=== PATIENT | male | born 1945 | race Caucasian/White ===

== ENCOUNTER 2017-10-12 04:17 | Inpatient (IN) | payer MEDICAID ==
--- NOTE | 2017-10-12 04:37 | C.PDOC ---
History Of Present Illness 72 year old male is brought to the ED for evaluation of seizure like activity that obscured [employer]. Patient got up to go to the bathroom and fell which occurred prior to arrival. On the floor patient started shaking arms and legs with no incontinence. Patient had a similar episode 3 weeks ago while in [place]. Patient was worked up there, had a negative CT scan. As per EMS en route to the ED patient became combative and agitated. While in the ED patient is cooperative. Patient denies fever, chills, nausea, vomit, bowel/urinary incontinence, weakness, numbness. Time Seen by Provider: 10/12/17 04:37 Chief Complaint (Nursing): Seizure History Per: Patient History/Exam Limitations: no limitations Recent Seizure Activity Began: Just Before Arrival Number Of Seizures: One Length Of Seizures (Duration): Unknown Quality Of Seizure: Generalized Precipitating Factor(s): None Post-ictal Period: Yes Severity: Moderate Pain Scale Rating Of: 4 Recent travel outside of the [place]: No Additional History Per: Patient Past Medical History Reviewed: Historical Data, Nursing Documentation, Vital Signs Vital Signs: Last Vital Signs Temp 98.5 F 10/12/17 04:30 Pulse 94 H 10/12/17 04:30 Resp 20 10/12/17 04:30 BP 145/78 10/12/17 04:30 Pulse Ox 96 10/12/17 05:09 - Medical History PMH: No Chronic Diseases Surgical History: No Surg Hx Family History: States: Unknown Family Hx - Social History Hx Tobacco Use: No Hx Alcohol Use: No Hx Substance Use: No Review Of Systems Constitutional: Negative for: Fever, Chills Eyes: Negative for: Vision Change Cardiovascular: Negative for: Chest Pain, Palpitations Respiratory: Negative for: Shortness of Breath Gastrointestinal: Negative for: Nausea, Vomiting, Abdominal Pain Musculoskeletal: Negative for: Back Pain Skin: Negative for: Rash Neurological: Negative for: Headache, Other Psych: Negative for: Anxiety Physical Exam - Physical Exam Appears: Non-toxic, No Acute Distress Skin: Warm, Dry Head: Normacephalic Eye(s): bilateral: Normal Inspection, PERRL, EOMI Oral Mucosa: Moist Neck: Supple Chest: Symmetrical Cardiovascular: Rhythm Regular Respiratory: No Rales, No Rhonchi, No Wheezing Gastrointestinal/Abdominal: Soft, No Tenderness, No Guarding, No Rebound Back: Normal Inspection Extremity: Normal ROM Extremity: Bilateral: Atraumatic, Normal Color And Temperature Neurological/Psych: Oriented x3, Normal Speech, Normal Cognition, Normal Motor, Normal Sensation, Other (no focal deficits) Gait: Unsteady ED Course And Treatment - Laboratory Results Result Diagrams: 10/12/17 05:16 10/12/17 05:16 ECG: Interpreted By Me, Viewed By Me ECG Rhythm: Sinus Rhythm, Nonspecific Changes O2 Sat by Pulse Oximetry: 96 (ON RA) Pulse Ox Interpretation: Normal - Radiology CXR: Interpreted by Me, Viewed By Me CXR Interpretation: No: Infiltrates, Fracture, Pnemothorax Progress Note: Plan: - CT head. - EKG. - LAbs. - CXR. - IV fluids. - UA Disposition Discussed With Dr.: Ace Wilcox Comment: accepted the patient on his service and took over the care at 6:10AM Counseled Patient/Family Regarding: Studies Performed, Diagnosis - Disposition Disposition: HOSPITALIZED Disposition Time: 04:37 Condition: FAIR Forms: [email or web address] (Eritrean) - POA Present On Arrival: Falls Or Trauma - Clinical Impression Clinical Impression: Seizure - Scribe Statement The provider has reviewed the documentation as recorded by the Scribe Raz Fuentes All medical record entries made by the Scribe were at my direction and personally dictated by me. I have reviewed the chart and agree that the record accurately reflects my personal performance of the history, physical exam, medical decision making, and the department course for this patient. I have also personally directed, reviewed, and agree with the discharge instructions and disposition. Decision To Admit - Pt Status Changed To: Hospital Disposition Of: Inpatient - Admit Certification Admit to Inpatient:: After my assessment, the patient will require hospitalization for at least two midnights. This is because of the severity of symptoms shown, intensity of services needed, and/or the medical risk in this patient being treated as an outpatient. - InPatient: Physician Admission Certification: I certify that this patient requires 2 or more midnights of care for the following reason:: After my assessment, the patient will require hospitalization for at least two midnights. This is because of the severity of symptoms shown, intensity of services needed, and/or the medical risk in this patient being treated as an outpatient. - . Bed Request Type: Regular Admitting Physician: Ace Wilcox Patient Diagnosis: Seizure
[2017-10-12] MEDS ORDERED: Sodium Chloride 0.9% 1,000 ML IV ONE (04:59)
[2017-10-12 05:25] LABS: BASO % 0.5 % (0.0-2.0); EOS # 0.1 K/uL (0.0-0.7); EOS % 1.2 % (0.0-4.0); HEMOGLOBIN 13.5 g/dL (12.0-18.0); LYMPH # 2.8 K/uL (1.0-4.3); LYMPH % 26.4 % (20.0-40.0); MEAN CELL VOLUME 69.3 fL (80.0-94.0); MEAN CORPUSCULAR HGB CONC 31.8 g/dL (33.0-37.0); MEAN PLATELET VOLUME 9.4 fL (7.2-11.7); MONO # 0.6 K/uL (0.0-0.8); MONO % 5.7 % (0.0-10.0); NEUT # 6.9 K/uL (1.8-7.0); NEUT % 66.2 % (50.0-75.0); NRBC % 0.3 % (0.0-2.0); RBC 6.11 Mil/uL (4.40-5.90); RED CELL DISTRIBUTION WIDTH 21.4 % (11.5-14.5); WHITE BLOOD COUNT 10.4 K/uL (4.8-10.8)
[2017-10-12 05:27] LABS: INR 1.1; PROTHROMBIN TIME 12.3 SECONDS (9.7-12.2)
[2017-10-12 05:44] LABS: ALB/GLOB RATIO 1.1 (1.0-2.1); ALBUMIN 3.8 g/dL (3.5-5.0); ALT/SGPT 6 U/L (21-72); AST/SGOT 25 U/L (17-59); BLOOD UREA NITROGEN 14 mg/dL (9-20); CALCIUM 9.2 mg/dl (8.6-10.4); GFR AFRICAN-AMERICAN > 60; GFR NON-AFRICAN AMERICAN 60
[2017-10-12 05:59] LABS: GRANULAR CAST 8 /lpf (0-1); SPERM URINE FEW /hpf; SQUAMOUS EPITHIAL < 1 /hpf (0-5); URINE BACTERIA FEW (<OCC); URINE BILIRUBIN NEGATIVE (NEGATIVE); URINE BLOOD 1+ (NEGATIVE); URINE CLARITY Clear (Clear); URINE COLOR Yellow (YELLOW); URINE GLUCOSE (UA) NORMAL (Normal); URINE LEUKOCYTE ESTERASE NEG Leu/uL (Negative); URINE PROTEIN 2+ mg/dL (NEGATIVE); URINE UROBILINOGEN NORMAL mg/dL (0.2-1.0)
--- NOTE | 2017-10-12 06:27 | CT ---
EXAM: CT Head Without Intravenous Contrast CLINICAL HISTORY: 72 years old, male; Pain; Headache; Additional info: Seizure, new onset TECHNIQUE: Axial computed tomography images of the head/brain without intravenous contrast. All CT scans at this facility use one or more dose reduction techniques, viz.: automated exposure control; ma/kV adjustment per patient size (including targeted exams where dose is matched to indication; i.e. head); or iterative reconstruction technique. COMPARISON: No relevant prior studies available. FINDINGS: Limitations: Motion artifact - mild. Brain: [id number] atrophy. No definite intracranial hemorrhage. No mass. No definite edema. Ventricles: No hydrocephalus. Bones/joints: No acute fracture. Soft tissues: Unremarkable. Sinuses: [id number] mucosal thickening of ethmoid sinuses. Scattered minimal mucosal thickening of remaining sinuses. Mastoid air cells: No mastoid effusion. Orbits: Unremarkable as visualized. IMPRESSION: 1. No definite acute intracranial abnormality. If symptoms persist, consider MRI for further evaluation. 2. Incidental/non-acute findings are described above.
--- NOTE | 2017-10-12 07:21 | CP.PCM.HP ---
<WillIndira MonsivaisLynette - Last Filed: 10/12/17 17:51> History of Present Illness - History of Present Illness History of Present Illness: CC: sudden onset shaking, fall [facility] #[id number] HPI: 72-year-old male with no reported past medical history presented to the ED for evaluation of a fall and sudden onset shaking/seizure-like activity as reported by family. Patient is Setswana-speaking, translation service was used, entry level administrative assistant id #[id number]. Patient's and son are at bedside. Per , patient was walking to the bathroom at about 4:00 AM, began to lose balance, and was caught by the and son because they observed this change. Patient last remembers feeling dizzy while walking. states patient was not talking and "in spasm" for about five minutes. Patient did not lose bowel or bladder continence during the episode. Presence of head trauma is unclear, family initially states that the patient hit his head but later stated patient did not hit his head. Presence of shaking is similarly unclear, initially reported but later denied. Family states that this is the second episode; first episode of similar events occurred about 1 month ago while patient was in [place]. Patient arrived in [facility] from [place] 1 week ago. Patient has no complaints at this time. Denies fever/chills, chest pain, shortness of breath, dizziness, urinary issues. PMD: in [place] Past medical history: patient denies Past surgical history: hernia repair in [place] (2013) Medications: per patient and family "uses inhaler one time every night to help with breathing," denies other medications Allergies: NKDA Family history: denies family history of cancer or heart disease Social history: current smoker, 1ppd for 40 years; denies alcohol or illicit drug use Present on Admission - Present on Admission Any Indicators Present on Admission: No Review of Systems - Constitutional Constitutional: absent: Chills, Fever, Headache - EENT Eyes: absent: Blurred Vision Ears: Dizziness - Cardiovascular Cardiovascular: Syncope. absent: Chest Pain, Dyspnea, Palpitations - Respiratory Respiratory: absent: Cough, Dyspnea - Gastrointestinal Gastrointestinal: absent: Constipation, Diarrhea, Nausea, Vomiting - Genitourinary Genitourinary: absent: Dysuria - Neurological Neurological: Confusion, Convulsions, Dizziness, Syncope Past Patient History - Infectious Disease Hx of Infectious Diseases: None - Past Social History Smoking Status: Never Smoked - CARDIAC Hx Hypertension: Yes - PULMONARY Hx Respiratory Disorders: No - NEUROLOGICAL Hx Neurological Disorder: Yes Other/Comment: hx seixzure-like activity - HEENT Hx HEENT Problems: No - RENAL Hx Chronic Kidney Disease: No - ENDOCRINE/METABOLIC Hx Endocrine Disorders: No - HEMATOLOGICAL/ONCOLOGICAL Hx Blood Disorders: No - INTEGUMENTARY Hx Dermatological Problems: No - MUSCULOSKELETAL/RHEUMATOLOGICAL Hx Musculoskeletal Disorders: No - GASTROINTESTINAL Hx Gastrointestinal Disorders: No - GENITOURINARY/GYNECOLOGICAL Hx Genitourinary Disorders: No - PSYCHIATRIC Hx Substance Use: No - SURGICAL HISTORY Hx Surgeries: Yes Other/Comment: umbilical hernia - ANESTHESIA Hx Anesthesia: Yes Hx Anesthesia Reactions: No Meds Home Medications: Home Medication List Medication Instructions Recorded Confirmed Type Levetiracetam [Keppra] 500 mg PO BID #60 tablet 10/12/17 Rx RX: Carvedilol [Coreg] 3.125 mg PO BID #60 tab 10/12/17 Rx RX: Rosuvastatin Calcium [Crestor] 5 mg PO HS #30 tab 10/12/17 Rx Allergies/Adverse Reactions: Allergies Allergy/AdvReac Type Severity Reaction Status Date / Time No Known Allergies Allergy Unverified 10/12/17 04:43 Physical Exam - Constitutional Appears: Non-toxic, No Acute Distress - Head Exam Head Exam: ATRAUMATIC, NORMAL INSPECTION - Eye Exam Eye Exam: EOMI, Normal appearance, PERRL. absent: Scleral icterus Pupil Exam: NORMAL ACCOMODATION - ENT Exam ENT Exam: Mucous Membranes Moist - Respiratory Exam Respiratory Exam: Clear to Auscultation Bilateral, NORMAL BREATHING PATTERN - Cardiovascular Exam Cardiovascular Exam: REGULAR RHYTHM, +S1, +S2 - GI/Abdominal Exam GI & Abdominal Exam: Normal Bowel Sounds, Soft. absent: Tenderness - Extremities Exam Extremities exam: Positive for: normal capillary refill, normal inspection, pedal pulses present. Negative for: pedal edema, tenderness - Neurological Exam Neurological exam: Alert, CN II-XII Intact, Oriented x3 - Expanded Neurological Exam Expanded Patient oriented to: person, place, time Cerebellar Function: Romberg: Normal Upper motor neuron: Pronator Drift: Normal Sensory exam: Lower Extremity Light Touch: Normal, Upper Extremity Light Touch: Normal Neuro motor strength exam: Left Upper Extremity: 5, Right Upper Extremity: 5, Left Lower Extremity: 5, Right Lower Extremity: 5 Coma Scale Eye Opening: SPONTANEOUS Coma Scale Motor Response: OBEYS COMMANDS Coma Scale Verbal: Oriented Coma Scale Total: 15 - Psychiatric Exam Psychiatric exam: Flat Affect, Normal Mood - Skin Skin Exam: Normal Color Results - Vital Signs Recent Vital Signs: Last Vital Signs Temp 97.9 F 10/12/17 07:10 Pulse 75 10/12/17 07:10 Resp 20 10/12/17 07:10 BP 155/79 H 10/12/17 07:10 Pulse Ox 97 10/12/17 07:10 - Labs Result Diagrams: 10/12/17 05:16 10/12/17 05:16 Labs: Laboratory Results - last 24 hr 10/12/17 10/12/17 10/12/17 04:19 05:16 05:16 WBC 10.4 RBC 6.11 H Hgb 13.5 Hct 42.3 MCV 69.3 L MCH 22.0 L MCHC 31.8 L RDW 21.4 H Plt Count 276 MPV 9.4 Neut % (Auto) 66.2 Lymph % (Auto) 26.4 [place]in[place] % (Auto) 5.7 Eos % (Auto) 1.2 Baso % (Auto) 0.5 Neut # (Auto) 6.9 Lymph # (Auto) 2.8 [place]in[place] # (Auto) 0.6 Eos # (Auto) 0.1 Baso # (Auto) 0.0 PT 12.3 H INR 1.1 APTT 29 Sodium Potassium Chloride Carbon Dioxide Anion Gap BUN Creatinine Est GFR ( Amer) Est GFR (Non-Af Amer) POC Glucose (mg/dL) 166 H Random Glucose Calcium Magnesium Total Bilirubin AST ALT Alkaline Phosphatase Total Protein Albumin Globulin Albumin/Globulin Ratio Urine Color Urine Clarity Urine pH Ur Specific [place] Urine Protein Urine Glucose (UA) Urine Ketones Urine Blood Urine Nitrate Urine Bilirubin Urine Urobilinogen Ur Leukocyte Esterase Urine WBC (Auto) Urine RBC (Auto) Ur Squamous Epith Cells Urine Bacteria Granular Casts (Auto) Urine Sperm (Auto) 10/12/17 10/12/17 05:16 05:42 WBC RBC Hgb Hct MCV MCH MCHC RDW Plt Count MPV Neut % (Auto) Lymph % (Auto) [place] % (Auto) Eos % (Auto) Baso % (Auto) Neut # (Auto) Lymph # (Auto) [place] # (Auto) Eos # (Auto) Baso # (Auto) PT INR APTT Sodium 145 Potassium 4.0 Chloride 104 Carbon Dioxide 20 L Anion Gap 25 H BUN 14 Creatinine 1.2 Est GFR ( Amer) > 60 Est GFR (Non-Af Amer) 60 POC Glucose (mg/dL) Random Glucose 141 H Calcium 9.2 Magnesium 2.2 Total Bilirubin 0.8 AST 25 ALT 6 L Alkaline Phosphatase 138 H Total Protein 7.4 Albumin 3.8 Globulin 3.5 Albumin/Globulin Ratio 1.1 Urine Color Yellow Urine Clarity Clear Urine pH 5.0 Ur Specific [place] 1.018 Urine Protein 2+ H Urine Glucose (UA) Normal Urine Ketones Negative Urine Blood 1+ H Urine Nitrate Negative Urine Bilirubin Negative Urine Urobilinogen Normal Ur Leukocyte Esterase Neg Urine WBC (Auto) 8 H Urine RBC (Auto) 8 H Ur Squamous Epith Cells < 1 Urine Bacteria Few H Granular Casts (Auto) 8 Urine Sperm (Auto) Few H Assessment & Plan - Assessment and Plan (Free Text) Assessment: Syncope/Seizure - Admitted to Tele - Neuro checks q6h - Neuro Consult: Dr. Nguyen --> help appreciated - Cardio Consult: Dr. Gutierrez --> help appreciated - Orthostatic vitals - ProBNP 192 - Medications: * Keppra 500mg q12h - Images * Head CT:No definite acute intracranial abnormality. If symptoms persist, consider MRI for further evaluation. * Brain MRI w and w/o contrast: Age-related age-appropriate neuro degenerative changes are identified without definite acute intracranial findings. No abnormal intracranial enhancement. Incidental limited left mastoid effusions. * f/u EEG * f/u ECHO Elevated D-dimer - D-dimer 272 - f/u CT angio - LE doppler: negative Elevated Blood Pressure - f/u ECHO - TSH 1.25 - Coreg 3.125mg bid COPD - due to 20+ years of smoking - Chest Xray: No acute cardiopulmonary disease appreciated. - Medications * Advair * Duonebs prn Microhematuria - UA: RBC+ - Ceftriaxone 1gm q12h - f/u urine culture - f/u renal/urinary bladder US Impaired Glucose Tolerance - hA1c: 5.7 - Heart Healthy/Low carb diet Elevated Triglycerides - Lipid Panel: Triglycerides 183; Total Cholesterol 190; LDL 115; HDL 29 - Crestor 5mg HS Tobacco Use Disorder - Discussed the importance of smoking cessation - Nicotine Patch 21per day Prophylaxis - SCDs - Heparin SC q8h - Protonix 40mg po daily - Heart Healthy/Low Carb - PT eval and treat Case Discussed with Dr. Rose Solis PGY-1 <Vilma Rose V - Last Filed: 10/13/17 00:13> Results - Vital Signs Recent Vital Signs: Last Vital Signs Temp 98.2 F 10/12/17 13:24 Pulse 64 10/12/17 13:24 Resp 18 10/12/17 13:24 BP 138/80 10/12/17 13:24 Pulse Ox 96 10/12/17 13:24 - Labs Result Diagrams: 10/12/17 05:16 10/12/17 05:16 Labs: Laboratory Results - last 24 hr 10/12/17 10/12/17 10/12/17 04:19 05:16 05:16 WBC 10.4 RBC 6.11 H Hgb 13.5 Hct 42.3 MCV 69.3 L MCH 22.0 L MCHC 31.8 L RDW 21.4 H Plt Count 276 MPV 9.4 Neut % (Auto) 66.2 Lymph % (Auto) 26.4 [place] % (Auto) 5.7 Eos % (Auto) 1.2 Baso % (Auto) 0.5 Neut # (Auto) 6.9 Lymph # (Auto) 2.8 [place] # (Auto) 0.6 Eos # (Auto) 0.1 Baso # (Auto) 0.0 Differential Comment PT 12.3 H INR 1.1 APTT 29 D-Dimer, Quantitative Sodium Potassium Chloride Carbon Dioxide Anion Gap BUN Creatinine Est GFR ( Amer) Est GFR (Non-Af Amer) POC Glucose (mg/dL) 166 H Random Glucose Hemoglobin A1c Calcium Magnesium Total Bilirubin AST ALT Alkaline Phosphatase Total Creatine Kinase CK-MB (Mass) Troponin I NT-Pro-B Natriuret Pep Total Protein Albumin Globulin Albumin/Globulin Ratio Triglycerides Cholesterol LDL Cholesterol Direct HDL Cholesterol TSH 3rd Generation Urine Color Urine Clarity Urine pH Ur Specific [place] Urine Protein Urine Glucose (UA) Urine Ketones Urine Blood Urine Nitrate Urine Bilirubin Urine Urobilinogen Ur Leukocyte Esterase Urine WBC (Auto) Urine RBC (Auto) Ur Squamous Epith Cells Urine Bacteria Granular Casts (Auto) Urine Sperm (Auto) Urine Opiates Screen Urine Methadone Screen Ur Barbiturates Screen Ur Phencyclidine Scrn Ur Amphetamines Screen U Benzodiazepines Scrn U Oth Cocaine Metabols U Cannabinoids Screen Alcohol, Quantitative 10/12/17 10/12/17 10/12/17 05:16 05:42 07:54 WBC RBC Hgb Hct MCV MCH MCHC RDW Plt Count MPV Neut % (Auto) Lymph % (Auto) [place] % (Auto) Eos % (Auto) Baso % (Auto) Neut # (Auto) Lymph # (Auto) [place] # (Auto) Eos # (Auto) Baso # (Auto) Differential Comment PT INR APTT D-Dimer, Quantitative Sodium 145 Potassium 4.0 Chloride 104 Carbon Dioxide 20 L Anion Gap 25 H BUN 14 Creatinine 1.2 Est GFR ( Amer) > 60 Est GFR (Non-Af Amer) 60 POC Glucose (mg/dL) 116 H Random Glucose 141 H Hemoglobin A1c Calcium 9.2 Magnesium 2.2 Total Bilirubin 0.8 AST 25 ALT 6 L Alkaline Phosphatase 138 H Total Creatine Kinase CK-MB (Mass) Troponin I NT-Pro-B Natriuret Pep Total Protein 7.4 Albumin 3.8 Globulin 3.5 Albumin/Globulin Ratio 1.1 Triglycerides Cholesterol LDL Cholesterol Direct HDL Cholesterol TSH 3rd Generation 1.25 Urine Color Yellow Urine Clarity Clear Urine pH 5.0 Ur Specific [place] 1.018 Urine Protein 2+ H Urine Glucose (UA) Normal Urine Ketones Negative Urine Blood 1+ H Urine Nitrate Negative Urine Bilirubin Negative Urine Urobilinogen Normal Ur Leukocyte Esterase Neg Urine WBC (Auto) 8 H Urine RBC (Auto) 8 H Ur Squamous Epith Cells < 1 Urine Bacteria Few H Granular Casts (Auto) 8 Urine Sperm (Auto) Few H Urine Opiates Screen Urine Methadone Screen Ur Barbiturates Screen Ur Phencyclidine Scrn Ur Amphetamines Screen U Benzodiazepines Scrn U Oth Cocaine Metabols U Cannabinoids Screen Alcohol, Quantitative < 10 10/12/17 10/12/17 10/12/17 08:11 08:35 10:47 WBC RBC Hgb Hct MCV MCH MCHC RDW Plt Count MPV Neut % (Auto) Lymph % (Auto) [place] % (Auto) Eos % (Auto) Baso % (Auto) Neut # (Auto) Lymph # (Auto) [place] # (Auto) Eos # (Auto) Baso # (Auto) Differential Comment PT INR APTT D-Dimer, Quantitative Sodium Potassium Chloride Carbon Dioxide Anion Gap BUN Creatinine Est GFR ( Amer) Est GFR (Non-Af Amer) POC Glucose (mg/dL) Random Glucose Hemoglobin A1c 5.7 Calcium Magnesium Total Bilirubin AST ALT Alkaline Phosphatase Total Creatine Kinase 154 CK-MB (Mass) 1.91 Troponin I < 0.0120 NT-Pro-B Natriuret Pep 192 Total Protein Albumin Globulin Albumin/Globulin Ratio Triglycerides 183 H Cholesterol 190 LDL Cholesterol Direct 115 HDL Cholesterol 29 L TSH 3rd Generation 0.62 Urine Color Urine Clarity Urine pH Ur Specific [place] Urine Protein Urine Glucose (UA) Urine Ketones Urine Blood Urine Nitrate Urine Bilirubin Urine Urobilinogen Ur Leukocyte Esterase Urine WBC (Auto) Urine RBC (Auto) Ur Squamous Epith Cells Urine Bacteria Granular Casts (Auto) Urine Sperm (Auto) Urine Opiates Screen Negative Urine Methadone Screen Negative Ur Barbiturates Screen Negative Ur Phencyclidine Scrn Negative Ur Amphetamines Screen Negative U Benzodiazepines Scrn Negative U Oth Cocaine Metabols Negative U Cannabinoids Screen Negative Alcohol, Quantitative < 10 10/12/17 10:47 WBC RBC Hgb Hct MCV MCH MCHC RDW Plt Count MPV Neut % (Auto) Lymph % (Auto) [place] % (Auto) Eos % (Auto) Baso % (Auto) Neut # (Auto) Lymph # (Auto) [place] # (Auto) Eos # (Auto) Baso # (Auto) Differential Comment PT INR APTT D-Dimer, Quantitative 272 H Sodium Potassium Chloride Carbon Dioxide Anion Gap BUN Creatinine Est GFR ( Amer) Est GFR (Non-Af Amer) POC Glucose (mg/dL) Random Glucose Hemoglobin A1c Calcium Magnesium Total Bilirubin AST ALT Alkaline Phosphatase Total Creatine Kinase CK-MB (Mass) Troponin I NT-Pro-B Natriuret Pep Total Protein Albumin Globulin Albumin/Globulin Ratio Triglycerides Cholesterol LDL Cholesterol Direct HDL Cholesterol TSH 3rd Generation Urine Color Urine Clarity Urine pH Ur Specific [place] Urine Protein Urine Glucose (UA) Urine Ketones Urine Blood Urine Nitrate Urine Bilirubin Urine Urobilinogen Ur Leukocyte Esterase Urine WBC (Auto) Urine RBC (Auto) Ur Squamous Epith Cells Urine Bacteria Granular Casts (Auto) Urine Sperm (Auto) Urine Opiates Screen Urine Methadone Screen Ur Barbiturates Screen Ur Phencyclidine Scrn Ur Amphetamines Screen U Benzodiazepines Scrn U Oth Cocaine Metabols U Cannabinoids Screen Alcohol, Quantitative Assessment & Plan (1) New onset seizure Status: Acute Comment: Patient admitted to regular floor. Transferred to telemetry in light of new onset seizure. Neurology (Dr. Nguyen) on case-->help appreciated. In light of second seizure, patient starting on Keppra 1gm IV X1, Keppra 500mg IV Q12H. CT head (10/12/17): no definite acute intracranial abnormality. Brain MRI w and w/o (10/12/17): age-related age-appropriate neuro degenerative changes are identified without definite acute intracranial findings. No abnormal intracranial enhancement. Incidental limited left mastoid effusions. EEG pending. Hba1c: 5.7. NATALIE and EKG, Q6H; troponin negative. probnp: 192. Echocardiogram completed. UDS: negative (2) Smoking Status: Chronic Comment: Nicotine patch provided. Duonebs PRN shortness of breathe (3) Hematuria Status: Acute Comment: UA: +pyuria, +hematuria, bacteria. Start Rocephin 1 gram Iv q daily ( to cover for urinary tract infection). Renal and Bladder US ordered r/o mass, in light of painless hematuria and smoking history (4) Pyuria Status: Acute Comment: Start Rocephin 1 gram Iv q daily (to cover for urinary tract infection) . Renal and Bladder US ordered r/o mass, in light of painless hematuria and smoking history (5) Impaired glucose tolerance Status: Acute Comment: a1c: 5.7. Will need lifestyle modifications to reduce risk of becoming overt diabetes (6) High triglycerides Status: Chronic Comment: T (high), cholestrol: 190, LDL: 115, HDL: 29 (low) (7) Elevated d-dimer Status: Acute Comment: venous dopplers r/o DVT. CT angio r/o PE (8) Prophylactic measure Status: Acute Comment: Heparin 5000 units subq 8H Attending/Attestation - Attestation I have personally seen and examined this patient.: Yes I have fully participated in the care of the patient.: Yes I have reviewed all pertinent clinical information: Yes Notes (Text): Patient seen, examined, and case discussed with day-time resident. Patient seen at bedside with his family at bedside. Patient is Samoan, [employer]; son is assisting in translation. We have also used the translation, Setswana, Female intrepetator: Juan Antonio to assist us. Description from patient's , patient was going to the bathroom and while coming back she had noted that he was shaking and that he fell and that she try to prevent his fall. notes that his hands were crossed and fixed stiff but when he fell his limbs were relaxed. Son reports he heard the noise continuous in the same room as his parents and try to prevent his job from falling. Both son and report that patient was not himself until after the ambulance came meaning that he was not awake or alert. They supposedly lasted for 10 minutes. They speak with the patient at bedside he reports prior to the episode that he felt some dizziness and some nausea but did not vomit. He reports he did not sleep well. He reports normally he goes to the bathroom about 3 times at night. Patient reports that about month ago he had a similar episode and it went the hospital and they had done some imaging and reports that he had a seizure. Patient reports he hurt his back and takes Tylenol on occasion to relieve back pain. Patient is a known smoker about 40 years. Patient is not aware of any medical problems that he may have nor has seen a primary medical doctor for routine health visit. Patient was initially admitted to regular floor we have put in the transfer order for telemetry since this is a new onset seizure. I reviewed the CT head which shows no acute findings. We'll consult neurology. Resident has spoken with neurologist further workup is advised including but not limited to brain with MRI with and without contrast, EEG, and will receive loading dose of Keppra and maintenance dose of Keppra since this is the second episode of seizure. We will also order for Nestor an EKG 6 hours apart at least 3 as well as d-dimer to rule out PE given this recurrent fall. Patient's UA is abnormal for pyuria and hematuria. In light of his smoking history we will rule out renal mass with renal ultrasound and bladder. We will start Rocephin for empiric antibiotic therapy to cover for urinary tract infection. We will order physical therapy and occupational therapy.
[2017-10-12] MEDS ORDERED: Albuterol-Ipratrop 3 mg / 0.5 (3 ml) UD INH PRN (08:21)
[2017-10-12 09:13] LABS: BARBITURATES, UR NEGATIVE (NEGATIVE); BENZODIAZEPINES, UR NEGATIVE (NEGATIVE); OPIATES, UR NEGATIVE (NEGATIVE); PHENCYCLIDINE, UR NEGATIVE (NEGATIVE)
--- NOTE | 2017-10-12 09:59 | RAD ---
PROCEDURE: CHEST RADIOGRAPH, 1 VIEW HISTORY: SOB COMPARISON: None available. FINDINGS: LUNGS: No acute pulmonary disease appreciated. Patient rotated toward the right limiting evaluation the right hilar region somewhat. PLEURA: No pneumothorax or pleural fluid seen. CARDIOVASCULAR: Normal. OSSEOUS STRUCTURES: No significant abnormalities. VISUALIZED UPPER ABDOMEN: Normal. OTHER FINDINGS: None. IMPRESSION: No acute cardiopulmonary disease appreciated.
[2017-10-12] MEDS: levETIRAcetam 500 MG in Sodium Chloride 0.9% 100 ML IVPB SCH ×2 (10:03→22:02)
[2017-10-12 11:06] LABS: HDL CHOLESTEROL 29 mg/dL (30-70)
[2017-10-12] MEDS ORDERED: Gadodiamide 287 mg/ml 20 ml IV ONE (11:13)
[2017-10-12 11:17] LABS: LDL CHOLESTEROL 115 mg/dL (0-129)
[2017-10-12 11:21] LABS: B-TYPE NATRIURETIC PEPTIDE 192 pg/mL (0-900); CK-MB 1.91 ng/mL (0.0-3.38)
--- NOTE | 2017-10-12 13:05 | MRI ---
PROCEDURE: MRI BRAIN WITH AND WITHOUT CONTRAST HISTORY: new onset seizure COMPARISON: Noncontrast head CT 10/12/2017. TECHNIQUE: Multiplanar, multisequence MR images of the brain were obtained with and without intravenous contrast enhancement. FINDINGS: HEMORRHAGE: None DWI: No evidence of an acute or early subacute infarction. BRAIN PARENCHYMA: Limited diffuse cerebral atrophy and chronic microangiopathy are identified. There is no mass effect or cortical edema identified. There is no suspicious signal change identified in posterior fossa including the brainstem. High-resolution imaging through the bilateral temporal as well as demonstrate evidence of support mesial temporal sclerosis bilaterally. No intracranial enhancing mass or other suspicious contrast enhancement pattern throughout the brain. ENHANCEMENT: No abnormal intracranial enhancement. VENTRICLES: Unremarkable. No hydrocephalus. CRANIUM: Unremarkable. ORBITS: Grossly unremarkable. PARANASAL SINUSES/MASTOIDS: Mild left mastoid effusions are identified. VASCULAR SYSTEM: Skull base flow voids intact. OTHER FINDINGS: None . IMPRESSION: Age-related age-appropriate neuro degenerative changes are identified without definite acute intracranial findings. No abnormal intracranial enhancement. Incidental limited left mastoid effusions.
[2017-10-12 13:25] VITALS: O2SAT 96
[2017-10-12 15:37] LABS: CK-MB 1.91 ng/mL (0.0-3.38)
[2017-10-12 16:16] VITALS: RESP 20; TEMP 98.5
--- NOTE | 2017-10-12 16:56 | CP.PCM.CON ---
History of Present Illness - History of Present Illness History of Present Illness: Mr. Moreno is a 72 year-old [place] male with PMHx of HTN, asthma who came to the ED after a fall in his home at 4 am. He states that he was feeling dizzy at 10 pm, but felt better so went back to bed. As per family, fall occured at 4 am when patient went to the bathroom, but his son and caught him from falling , and denies any trauma or LOC. Of note, the patient had a similar fall 3 weeks ago while in [place], and at that time, he hurt his back and has been on Voltaren since then. There was some misunderstanding between family and medical team while using translation service, as patient expressed that he grasped his arms to protect his fall but was understood to have had seizure-like activities. Patiently was living in [place] and only recently travelled. Patient denies shortness of breath, chest pain, lightheadedness, palpitations, or leg swelling or pain. Cardiology was consulted for possible cardiac related syncope. PMH: as above PSH: non-contributory Meds: inhaler nightly for asthma, analgesics for back pain SHx: 1ppd for 40+yrs, denies ETOH or drug use ALL: NKDA Review of Systems - Review of Systems All systems: reviewed and no additional remarkable complaints except (as per HPI ) Past Patient History - Infectious Disease Hx of Infectious Diseases: None - Past Medical History & Family History Past Medical History?: Yes - Past Social History Smoking Status: Heavy Smoker > 10 Cigarettes Daily Alcohol: None Drugs: Denies Home Situation {Lives}: With Family - CARDIAC Hx Hypertension: Yes - PULMONARY Hx Asthma: Yes - NEUROLOGICAL Hx Neurological Disorder: Yes - HEENT Hx HEENT Problems: No - RENAL Hx Chronic Kidney Disease: No - ENDOCRINE/METABOLIC Hx Endocrine Disorders: No - HEMATOLOGICAL/ONCOLOGICAL Hx Blood Disorders: No - INTEGUMENTARY Hx Dermatological Problems: No - MUSCULOSKELETAL/RHEUMATOLOGICAL Hx Musculoskeletal Disorders: No - GASTROINTESTINAL Hx Gastrointestinal Disorders: No - GENITOURINARY/GYNECOLOGICAL Hx Genitourinary Disorders: No - PSYCHIATRIC Hx Psychophysiologic Disorder: No Hx Substance Use: No - SURGICAL HISTORY Hx Surgeries: Yes Other/Comment: umbilical hernia - ANESTHESIA Hx Anesthesia: Yes Hx Anesthesia Reactions: No Meds Home Medications: Home Medication List Medication Instructions Recorded Confirmed Type Carvedilol [Coreg] 3.125 mg PO BID #60 tab 10/12/17 Rx Levetiracetam [Keppra] 500 mg PO BID #60 tablet 10/12/17 Rx Rosuvastatin Calcium [Crestor] 5 mg PO HS #30 tab 10/12/17 Rx Allergies/Adverse Reactions: Allergies Allergy/AdvReac Type Severity Reaction Status Date / Time No Known Allergies Allergy Unverified 10/12/17 04:43 - Medications Medications: Current Medications Albuterol/Ipratropium (Duoneb 3 Mg/0.5 Mg (3 Ml) Ud) 3 ml INH RQ6 PRN PRN Reason: Shortness of Breath Aspirin (Aspirin Chewable) 81 mg PO DAILY [facility] Last Admin: 10/12/17 09:40 Dose: 81 mg Heparin Sodium (Porcine) (Heparin) 5,000 units SC Q8 [facility] Last Admin: 10/12/17 14:14 Dose: 5,000 units Levetiracetam 500 mg/ Sodium (Chloride) 105 mls @ 420 mls/hr IVPB Q12H [facility] Last Admin: 10/12/17 10:03 Dose: 420 mls/hr Ceftriaxone Sodium 1 gm/ (Sodium Chloride) 100 mls @ 100 mls/hr IVPB DAILY [facility] PRN Reason: Protocol Nicotine (Nicoderm Cq) 1 patch TD DAILY [facility] Last Admin: 10/12/17 10:21 Dose: 1 patch Pneumococcal Polyvalent Vaccine (Pneumovax 23 Vaccine) 0.5 ml IM .ONCE ONE Stop: 10/14/17 10:01 Rosuvastatin Calcium (Crestor) 5 mg PO [facility] Physical Exam - Constitutional Appears: Well, Non-toxic, No Acute Distress - Head Exam Head Exam: NORMAL INSPECTION - Eye Exam Eye Exam: EOMI, Normal appearance, PERRL - ENT Exam ENT Exam: Mucous Membranes Moist - Neck Exam Neck exam: Positive for: Normal Inspection - Respiratory Exam Respiratory Exam: Wheezes, NORMAL BREATHING PATTERN. absent: Rales, Rhonchi - Cardiovascular Exam Cardiovascular Exam: RRR, +S1, +S2. absent: Systolic Murmur - GI/Abdominal Exam GI & Abdominal Exam: Normal Bowel Sounds, Soft. absent: Distended, Tenderness - Extremities Exam Extremities exam: Positive for: normal inspection. Negative for: pedal edema - Neurological Exam Neurological exam: Alert, Normal Gait, Oriented x3 - Psychiatric Exam Psychiatric exam: Normal Mood - Skin Skin Exam: Normal Color, Warm Results - Vital Signs Recent Vital Signs: Last Vital Signs Temp 98.5 F 10/12/17 16:15 Pulse 71 10/12/17 16:15 Resp 20 10/12/17 16:15 BP 160/78 H 10/12/17 16:15 Pulse Ox 96 10/12/17 16:15 - Labs Result Diagrams: 10/12/17 05:16 10/12/17 05:16 Labs: Laboratory Results - last 24 hr 10/12/17 10/12/17 10/12/17 04:19 05:16 05:16 WBC 10.4 RBC 6.11 H Hgb 13.5 Hct 42.3 MCV 69.3 L MCH 22.0 L MCHC 31.8 L RDW 21.4 H Plt Count 276 MPV 9.4 Neut % (Auto) 66.2 Lymph % (Auto) 26.4 [place] % (Auto) 5.7 Eos % (Auto) 1.2 Baso % (Auto) 0.5 Neut # (Auto) 6.9 Lymph # (Auto) 2.8 [place] # (Auto) 0.6 Eos # (Auto) 0.1 Baso # (Auto) 0.0 Differential Comment PT 12.3 H INR 1.1 APTT 29 D-Dimer, Quantitative Sodium Potassium Chloride Carbon Dioxide Anion Gap BUN Creatinine Est GFR ( Amer) Est GFR (Non-Af Amer) POC Glucose (mg/dL) 166 H Random Glucose Hemoglobin A1c Calcium Magnesium Total Bilirubin AST ALT Alkaline Phosphatase Total Creatine Kinase CK-MB (Mass) Troponin I NT-Pro-B Natriuret Pep Total Protein Albumin Globulin Albumin/Globulin Ratio Triglycerides Cholesterol LDL Cholesterol Direct HDL Cholesterol TSH 3rd Generation Urine Color Urine Clarity Urine pH Ur Specific [place] Urine Protein Urine Glucose (UA) Urine Ketones Urine Blood Urine Nitrate Urine Bilirubin Urine Urobilinogen Ur Leukocyte Esterase Urine WBC (Auto) Urine RBC (Auto) Ur Squamous Epith Cells Urine Bacteria Granular Casts (Auto) Urine Sperm (Auto) Urine Opiates Screen Urine Methadone Screen Ur Barbiturates Screen Ur Phencyclidine Scrn Ur Amphetamines Screen U Benzodiazepines Scrn U Oth Cocaine Metabols U Cannabinoids Screen Alcohol, Quantitative 10/12/17 10/12/17 10/12/17 05:16 05:42 07:54 WBC RBC Hgb Hct MCV MCH MCHC RDW Plt Count MPV Neut % (Auto) Lymph % (Auto) [place] % (Auto) Eos % (Auto) Baso % (Auto) Neut # (Auto) Lymph # (Auto) [place] # (Auto) Eos # (Auto) Baso # (Auto) Differential Comment PT INR APTT D-Dimer, Quantitative Sodium 145 Potassium 4.0 Chloride 104 Carbon Dioxide 20 L Anion Gap 25 H BUN 14 Creatinine 1.2 Est GFR ( Amer) > 60 Est GFR (Non-Af Amer) 60 POC Glucose (mg/dL) 116 H Random Glucose 141 H Hemoglobin A1c Calcium 9.2 Magnesium 2.2 Total Bilirubin 0.8 AST 25 ALT 6 L Alkaline Phosphatase 138 H Total Creatine Kinase CK-MB (Mass) Troponin I NT-Pro-B Natriuret Pep Total Protein 7.4 Albumin 3.8 Globulin 3.5 Albumin/Globulin Ratio 1.1 Triglycerides Cholesterol LDL Cholesterol Direct HDL Cholesterol TSH 3rd Generation 1.25 Urine Color Yellow Urine Clarity Clear Urine pH 5.0 Ur Specific [place] 1.018 Urine Protein 2+ H Urine Glucose (UA) Normal Urine Ketones Negative Urine Blood 1+ H Urine Nitrate Negative Urine Bilirubin Negative Urine Urobilinogen Normal Ur Leukocyte Esterase Neg Urine WBC (Auto) 8 H Urine RBC (Auto) 8 H Ur Squamous Epith Cells < 1 Urine Bacteria Few H Granular Casts (Auto) 8 Urine Sperm (Auto) Few H Urine Opiates Screen Urine Methadone Screen Ur Barbiturates Screen Ur Phencyclidine Scrn Ur Amphetamines Screen U Benzodiazepines Scrn U Oth Cocaine Metabols U Cannabinoids Screen Alcohol, Quantitative < 10 10/12/17 10/12/17 10/12/17 08:11 08:35 10:47 WBC RBC Hgb Hct MCV MCH MCHC RDW Plt Count MPV Neut % (Auto) Lymph % (Auto) [place] % (Auto) Eos % (Auto) Baso % (Auto) Neut # (Auto) Lymph # (Auto) [place] # (Auto) Eos # (Auto) Baso # (Auto) Differential Comment PT INR APTT D-Dimer, Quantitative Sodium Potassium Chloride Carbon Dioxide Anion Gap BUN Creatinine Est GFR ( Amer) Est GFR (Non-Af Amer) POC Glucose (mg/dL) Random Glucose Hemoglobin A1c 5.7 Calcium Magnesium Total Bilirubin AST ALT Alkaline Phosphatase Total Creatine Kinase 154 CK-MB (Mass) 1.91 Troponin I < 0.0120 NT-Pro-B Natriuret Pep 192 Total Protein Albumin Globulin Albumin/Globulin Ratio Triglycerides 183 H Cholesterol 190 LDL Cholesterol Direct 115 HDL Cholesterol 29 L TSH 3rd Generation 0.62 Urine Color Urine Clarity Urine pH Ur Specific [place] Urine Protein Urine Glucose (UA) Urine Ketones Urine Blood Urine Nitrate Urine Bilirubin Urine Urobilinogen Ur Leukocyte Esterase Urine WBC (Auto) Urine RBC (Auto) Ur Squamous Epith Cells Urine Bacteria Granular Casts (Auto) Urine Sperm (Auto) Urine Opiates Screen Negative Urine Methadone Screen Negative Ur Barbiturates Screen Negative Ur Phencyclidine Scrn Negative Ur Amphetamines Screen Negative U Benzodiazepines Scrn Negative U Oth Cocaine Metabols Negative U Cannabinoids Screen Negative Alcohol, Quantitative < 10 10/12/17 10/12/17 10:47 14:55 WBC RBC Hgb Hct MCV MCH MCHC RDW Plt Count MPV Neut % (Auto) Lymph % (Auto) [place] % (Auto) Eos % (Auto) Baso % (Auto) Neut # (Auto) Lymph # (Auto) [place] # (Auto) Eos # (Auto) Baso # (Auto) Differential Comment PT INR APTT D-Dimer, Quantitative 272 H Sodium Potassium Chloride Carbon Dioxide Anion Gap BUN Creatinine Est GFR ( Amer) Est GFR (Non-Af Amer) POC Glucose (mg/dL) Random Glucose Hemoglobin A1c Calcium Magnesium Total Bilirubin AST ALT Alkaline Phosphatase Total Creatine Kinase 186 H CK-MB (Mass) 1.91 Troponin I < 0.0120 NT-Pro-B Natriuret Pep Total Protein Albumin Globulin Albumin/Globulin Ratio Triglycerides Cholesterol LDL Cholesterol Direct HDL Cholesterol TSH 3rd Generation Urine Color Urine Clarity Urine pH Ur Specific [place] Urine Protein Urine Glucose (UA) Urine Ketones Urine Blood Urine Nitrate Urine Bilirubin Urine Urobilinogen Ur Leukocyte Esterase Urine WBC (Auto) Urine RBC (Auto) Ur Squamous Epith Cells Urine Bacteria Granular Casts (Auto) Urine Sperm (Auto) Urine Opiates Screen Urine Methadone Screen Ur Barbiturates Screen Ur Phencyclidine Scrn Ur Amphetamines Screen U Benzodiazepines Scrn U Oth Cocaine Metabols U Cannabinoids Screen Alcohol, Quantitative Assessment & Plan - Assessment and Plan (Free Text) Assessment: 72yo M with a PMH of asthma and HTN who presents s/p syncopal episode; patient had prior episode 3 weeks ago but travelled from [place] 4 days ago. Plan: 1. Syncope - orthostatics negative (sitting: BP 167/80, HR 76; laying: BP 167/81, HR 84; standing: BP 173/91, HR 88) - CT Head and brain MRI showed no changes - Echo was done, f/u official reading - given the patient's travel hx and elevated D-dimer, LE duplex was done but showed no DVTs and CTA chest is being done - Neurology is consulted - started empirically on Rocephin for bacteria in urine - started on Keppra by neurology team - troponin negative x2 - EKG showed some T wave inversion, cont to trend troponin and follow up EKG - would recommend f/u echo w/ bubble study and stress test, which can be done as outpatient 2. Hx asthma w/ wheezing - duoneb prn - advair started 3. Hx tobacco use - nicoderm Patient was reviewed and discussed with Dr. Gutierrez
[2017-10-12] MEDS ORDERED: Iodixanol 320 MG/ML 100 ML BOTTLE IV ONE (17:09)
--- NOTE | 2017-10-12 17:39 | CARD ---
APPROVED REPORT EXAM: Two-dimensional and M-mode echocardiogram with Doppler and color Doppler. Other Information Quality : Good[employer] : INDICATION Dizziness and Vertigo RISK FACTORS Hypertension 2D DIMENSIONS IVSd1.0 (0.7-1.1cm)Aortic Root (2D)3.5 (2.0-3.7cm) LVDd4.8 (3.9-5.9cm)PWd1.2 (0.7-1.1cm) LVDs2.7 (2.5-4.0cm)FS (%) 44.0 % LVEF (%)75.1 (>50%) M-Mode DIMENSIONS RVDd1.87 (2.1-3.2cm)Left Atrium (MM)3.62 (2.5-4.0cm) IVSd1.49 (0.7-1.1cm)Aortic Root3.95 (2.2-3.7cm) LVDd4.69 (4.0-5.6cm)Aortic Cusp Exc.2.18 (1.5-2.0cm) PWd1.42 (0.7-1.1cm)FS (%) 50 % LVDs2.33 (2.0-3.8cm)LVEF (%)82 (>50%) Mitral Valve MV E Quizcyco82.5cm/sMV A Tbbccpnu94.5cm/s Tricuspid Valve TR Peak [id number] Peak [id number] LEFT VENTRICLE The left ventricle is normal size. There is normal left ventricular wall thickness. The left ventricular function is normal. The left ventricular ejection fraction is within the normal range. There is normal LV segmental wall motion. Transmitral Doppler flow pattern is abnormal. RIGHT VENTRICLE The right ventricle is normal size. ATRIA The left atrium size is normal. The right atrium size is normal. AORTIC VALVE The aortic valve is normal in structure. MITRAL VALVE The mitral valve is normal in structure. TRICUSPID VALVE There is trace to mild tricuspid regurgitation. <Conclusion> Normal LV systolic function. Diastolic dysfunction. Normal chamber size. Trace to mild TR.
[2017-10-12 17:48] VITALS: PULSE 78
--- NOTE | 2017-10-12 18:01 | CT ---
PROCEDURE: CT Chest with contrast (Pulmonary Angiogram) HISTORY: elevated ddimer; recent travel COMPARISON: None available. TECHNIQUE: Axial computed tomography images were obtained of the chest in the pulmonary arterial phase of enhancement. Coronal and sagittal reformatted images were created and reviewed. Intravenous contrast dose: 100 mL Visipaque 320 Radiation dose: Total exam DLP = 448.05 mGy-cm. This CT exam was performed using one or more of the following dose reduction techniques: Automated exposure control, adjustment of the mA and/or kV according to patient size, and/or use of iterative reconstruction technique. FINDINGS: PULMONARY ARTERIES: Unremarkable. No pulmonary embolism. AORTA: No acute findings. No thoracic aortic aneurysm. LUNGS: Mild centrilobular pulmonary emphysema. Minimal right lower lobe linear scar/ atelectasis. No infiltrate. PLEURAL SPACES: Unremarkable. No effusion or pneuomothorax. HEART: Unremarkable. No cardiomegaly. No significant pericardial effusion. LYMPH NODES: No lymphadenopathy. BONES, CHEST WALL: Mild compression deformity of the superior T12 vertebral endplate, of indeterminate age. OTHER FINDINGS: Unremarkable. IMPRESSION: No evidence of pulmonary embolism. Mild centrilobular pulmonary emphysema. Mild compression deformity of the superior T12 vertebral endplate, age indeterminate.
[2017-10-12 18:34] VITALS: BP 162/82
[2017-10-12] MEDS ORDERED: Fluticasone-Salmeterol 250-50mcg Diskus INH SCH (20:00)
--- NOTE | 2017-10-12 21:33 | US ---
EXAM: US Retroperitoneal Complete EXAM DATE/TIME: 10/12/2017 3:07 PM CLINICAL HISTORY: 72 years old, male; Signs and symptoms; Other: Hematuria , R/O mass; Additional info: Hematuria, R/O mass TECHNIQUE: Real-time ultrasound of the retroperitoneum (complete) with image documentation. COMPARISON: No relevant prior studies available. FINDINGS: Right kidney: Within normal limits in appearance. Measures 10.1 cm in length. No evidence of hydronephrosis. No renal calculi or focal renal lesions are visible sonographically. Left kidney: Contains a large cystic lesion, measuring 9 x 7.8 x 9.4 cm. This has ultrasound features most compatible with a simple cyst. Otherwise within normal limits in appearance. Measures 15 cm in length. No renal calculi are visible sonographically. Bladder: Within normal limits in appearance. The prevoid bladder volume was 90 mL. The post void bladder volume was 36 mm. Other findings: Prostate gland is mildly enlarged, with a volume of 52 mL. IMPRESSION: No evidence of hydronephrosis or other acute sonographic abnormality of the kidneys. Large 9.4 cm simple left renal cyst. Small bladder post void residual. Mild enlargement of the prostate gland. See above for remaining findings.
--- NOTE | 2017-10-13 00:58 | CP.PCM.DIS ---
<Estela Abreu - Last Filed: 10/13/17 04:20> Provider - Provider Date of Admission: 10/12/17 06:08 Attending physician: Vilma Rose DO Consults: Neurology: Dr. Nguyen Cardiology: Dr. Gutierrez Time Spent in preparation of Discharge (in minutes): 45 Hospital Course - Lab Results Lab Results: Most Recent Lab Values WBC 10.4 K/uL (4.8-10.8) 10/12/17 05:16 RBC 6.11 Mil/uL (4.40-5.90) H 10/12/17 05:16 Hgb 13.5 g/dL (12.0-18.0) 10/12/17 05:16 Hct 42.3 % (35.0-51.0) 10/12/17 05:16 MCV 69.3 fL (80.0-94.0) L 10/12/17 05:16 MCH 22.0 pg (27.0-31.0) L 10/12/17 05:16 MCHC 31.8 g/dL (33.0-37.0) L 10/12/17 05:16 RDW 21.4 % (11.5-14.5) H 10/12/17 05:16 Plt Count 276 K/uL (130-400) 10/12/17 05:16 MPV 9.4 fL (7.2-11.7) 10/12/17 05:16 Neut % (Auto) 66.2 % (50.0-75.0) 10/12/17 05:16 Lymph % (Auto) 26.4 % (20.0-40.0) 10/12/17 05:16 [place]key % (Auto) 5.7 % (0.0-10.0) 10/12/17 05:16 Eos % (Auto) 1.2 % (0.0-4.0) 10/12/17 05:16 Baso % (Auto) 0.5 % (0.0-2.0) 10/12/17 05:16 Neut # (Auto) 6.9 K/uL (1.8-7.0) 10/12/17 05:16 Lymph # (Auto) 2.8 K/uL (1.0-4.3) 10/12/17 05:16 Dickey # (Auto) 0.6 K/uL (0.0-0.8) 10/12/17 05:16 Eos # (Auto) 0.1 K/uL (0.0-0.7) 10/12/17 05:16 Baso # (Auto) 0.0 K/uL (0.0-0.2) 10/12/17 05:16 Differential Comment 10/12/17 05:16 PT 12.3 SECONDS (9.7-12.2) H 10/12/17 05:16 INR 1.1 10/12/17 05:16 APTT 29 SECONDS (21-34) 10/12/17 05:16 D-Dimer, Quantitative 272 ng/mlDDU (0-243) H 10/12/17 10:47 Sodium 145 mmol/L (132-148) 10/12/17 05:16 Potassium 4.0 mmol/L (3.6-5.2) 10/12/17 05:16 Chloride 104 mmol/L (98-107) 10/12/17 05:16 Carbon Dioxide 20 mmol/L (22-30) L 10/12/17 05:16 Anion Gap 25 (10-20) H 10/12/17 05:16 BUN 14 mg/dL (9-20) 10/12/17 05:16 Creatinine 1.2 mg/dL (0.8-1.5) 10/12/17 05:16 Est GFR ( Amer) > 60 10/12/17 05:16 Est GFR (Non-Af Amer) 60 10/12/17 05:16 POC Glucose (mg/dL) 116 mg/dL (65-110) H 10/12/17 07:54 Random Glucose 141 mg/dL (75-110) H 10/12/17 05:16 Hemoglobin A1c 5.7 % (4.2-6.5) 10/12/17 08:11 Calcium 9.2 mg/dl (8.6-10.4) 10/12/17 05:16 Magnesium 2.2 mg/dL (1.6-2.3) 10/12/17 05:16 Total Bilirubin 0.8 mg/dL (0.2-1.3) 10/12/17 05:16 AST 25 U/L (17-59) 10/12/17 05:16 ALT 6 U/L (21-72) L 10/12/17 05:16 Alkaline Phosphatase 138 U/L (38-126) H 10/12/17 05:16 Total Creatine Kinase 186 U/L (55-170) H 10/12/17 14:55 CK-MB (Mass) 1.91 ng/mL (0.0-3.38) 10/12/17 14:55 Troponin I < 0.0120 ng/mL (0.00-0.120) 10/12/17 14:55 NT-Pro-B Natriuret Pep 192 pg/mL (0-900) 10/12/17 10:47 Total Protein 7.4 g/dL (6.3-8.3) 10/12/17 05:16 Albumin 3.8 g/dL (3.5-5.0) 10/12/17 05:16 Globulin 3.5 gm/dL (2.2-3.9) 10/12/17 05:16 Albumin/Globulin Ratio 1.1 (1.0-2.1) 10/12/17 05:16 Triglycerides 183 mg/dL (0-149) H 10/12/17 10:47 Cholesterol 190 mg/dL (0-199) 10/12/17 10:47 LDL Cholesterol Direct 115 mg/dL (0-129) 10/12/17 10:47 HDL Cholesterol 29 mg/dL (30-70) L 10/12/17 10:47 TSH 3rd Generation 0.62 mIU/L (0.46-4.68) 10/12/17 10:47 Urine Color Yellow (YELLOW) 10/12/17 05:42 Urine Clarity Clear (Clear) 10/12/17 05:42 Urine pH 5.0 (5.0-8.0) 10/12/17 05:42 Ur Specific [place] 1.018 (1.003-1.030) 10/12/17 05:42 Urine Protein 2+ mg/dL (NEGATIVE) H 10/12/17 05:42 Urine Glucose (UA) Normal mg/dL (Normal) 10/12/17 05:42 Urine Ketones Negative mg/dL (NEGATIVE) 10/12/17 05:42 Urine Blood 1+ (NEGATIVE) H 10/12/17 05:42 Urine Nitrate Negative (NEGATIVE) 10/12/17 05:42 Urine Bilirubin Negative (NEGATIVE) 10/12/17 05:42 Urine Urobilinogen Normal mg/dL (0.2-1.0) 10/12/17 05:42 Ur Leukocyte Esterase Neg Michele/uL (Negative) 10/12/17 05:42 Urine WBC (Auto) 8 /hpf (0-5) H 10/12/17 05:42 Urine RBC (Auto) 8 /hpf (0-3) H 10/12/17 05:42 Ur Squamous Epith Cells < 1 /hpf (0-5) 10/12/17 05:42 Urine Bacteria Few (<OCC) H 10/12/17 05:42 Granular Casts (Auto) 8 /lpf (0-1) 10/12/17 05:42 Urine Sperm (Auto) Few /hpf (NONE) H 10/12/17 05:42 Urine Opiates Screen Negative (NEGATIVE) 10/12/17 08:35 Urine Methadone Screen Negative (NEGATIVE) 10/12/17 08:35 Ur Barbiturates Screen Negative (NEGATIVE) 10/12/17 08:35 Ur Phencyclidine Scrn Negative (NEGATIVE) 10/12/17 08:35 Ur Amphetamines Screen Negative (NEGATIVE) 10/12/17 08:35 U Benzodiazepines Scrn Negative (NEGATIVE) 10/12/17 08:35 U Oth Cocaine Metabols Negative (NEGATIVE) 10/12/17 08:35 U Cannabinoids Screen Negative (NEGATIVE) 10/12/17 08:35 Alcohol, Quantitative < 10 mg/dl (0-10) 10/12/17 10:47 - Hospital Course Hospital Course: HPI: 72-year-old male with no reported past medical history presented to the ED for evaluation of a fall and sudden onset shaking/seizure-like activity as reported by family. Patient is Greek-speaking, translation service was used, wire sawyer id #[id number]. Patient's and son are at bedside. Per , patient was walking to the bathroom at about 4:00 AM, began to lose balance, and was caught by the and son because they observed this change. Patient last remembers feeling dizzy while walking. states patient was not talking and "in spasm" for about five minutes. Patient did not lose bowel or bladder continence during the episode. Presence of head trauma is unclear, family initially states that the patient hit his head but later stated patient did not hit his head. Presence of shaking is similarly unclear, initially reported but later denied. Family states that this is the second episode; first episode of similar events occurred about 1 month ago while patient was in [place]. Patient arrived in [facility] from [place] 1 week ago. Patient has no complaints at this time. Denies fever/chills, chest pain, shortness of breath, dizziness, urinary issues. PMD: in [place] Past medical history: patient denies Past surgical history: hernia repair in [place] (2012) Medications: per patient and family "uses inhaler one time every night to help with breathing," denies other medications Allergies: NKDA Family history: denies family history of cancer or heart disease Social history: current smoker, 1ppd for 40 years; denies alcohol or illicit drug use Hospital course: Patient was admitted on 10/12/17 for new onset seizures. Neurology was consulted, Dr. Nguyen. Patient was started on Keppra 500mg PO BID. Brain MRI was ordered and showed age-related age-appropriate neuro degenerative changes are identified without definite acute intracranial findings; no abnormal intracranial enhancement; incidental limited left mastoid effusions. EEG was ordered, results are pending. Cardiology was consulted, Dr. Gutierrez. Echocardiogram was ordered and results were normal. Urine drug screen was negative. On urinalysis, hematuria, pyruria, and bacteria were present. Patient was started on Rocephin 1gram IV. Renal/Bladder US were ordered to rule out mass /malignancy. Patient was found to have elevated triglycerides and was started on crestor 2.5mg po HS. D-dimer was measured and elevated. CTA was ordered and was negative for PE. Patient requested to leave against medical advice. Risks were discussed in detail with patient (children at bedside). Patient understood risks and signed the AMA form. Patient was provided with a month supply of Keppra and Crestor. Patient was also provided prescription for Coreg, however, he states he has his blood pressure medication from [place] at home and prefers to take his own medication. Patient was encouraged to follow up in clinic next week to continue care. This is a brief summary of the hospital course. Please see EMR for more details. Discharge Plan - Discharge Medications Prescriptions: Carvedilol [Coreg] 3.125 mg PO BID #60 tab Levetiracetam [Keppra] 500 mg PO BID #60 tablet Rosuvastatin Calcium [Crestor] 5 mg PO HS #30 tab - Follow Up Plan Condition: FAIR Disposition: AGAINST MEDICAL ADVICE Instructions: Smoking: Not Just Harmful to Your Lungs and Heart, Seizures, Adult (DC), Quitting Smoking Referrals: Arnie Nguyen MD [Staff Provider] - <Vilma Rose V - Last Filed: 10/13/17 18:25> Provider - Provider Date of Admission: 10/12/17 06:08 Attending physician: Vilma Rose DO Diagnosis - Discharge Diagnosis (1) New onset seizure Status: Acute (2) Smoking Status: Chronic (3) Hematuria Status: Acute (4) Pyuria Status: Acute (5) Impaired glucose tolerance Status: Acute (6) High triglycerides Status: Chronic (7) Elevated d-dimer Status: Acute (8) Prophylactic measure Status: Acute Hospital Course - Lab Results Lab Results: Micro Results 10/12/17 19:09 Urine,Catheterized Urine Culture - Preliminary No growth. Most Recent Lab Values WBC 10.4 K/uL (4.8-10.8) 10/12/17 05:16 RBC 6.11 Mil/uL (4.40-5.90) H 10/12/17 05:16 Hgb 13.5 g/dL (12.0-18.0) 10/12/17 05:16 Hct 42.3 % (35.0-51.0) 10/12/17 05:16 MCV 69.3 fL (80.0-94.0) L 10/12/17 05:16 MCH 22.0 pg (27.0-31.0) L 10/12/17 05:16 MCHC 31.8 g/dL (33.0-37.0) L 10/12/17 05:16 RDW 21.4 % (11.5-14.5) H 10/12/17 05:16 Plt Count 276 K/uL (130-400) 10/12/17 05:16 MPV 9.4 fL (7.2-11.7) 10/12/17 05:16 Neut % (Auto) 66.2 % (50.0-75.0) 10/12/17 05:16 Lymph % (Auto) 26.4 % (20.0-40.0) 10/12/17 05:16 Dickey % (Auto) 5.7 % (0.0-10.0) 10/12/17 05:16 Eos % (Auto) 1.2 % (0.0-4.0) 10/12/17 05:16 Baso % (Auto) 0.5 % (0.0-2.0) 10/12/17 05:16 Neut # (Auto) 6.9 K/uL (1.8-7.0) 10/12/17 05:16 Lymph # (Auto) 2.8 K/uL (1.0-4.3) 10/12/17 05:16 Dickey # (Auto) 0.6 K/uL (0.0-0.8) 10/12/17 05:16 Eos # (Auto) 0.1 K/uL (0.0-0.7) 10/12/17 05:16 Baso # (Auto) 0.0 K/uL (0.0-0.2) 10/12/17 05:16 Differential Comment 10/12/17 05:16 PT 12.3 SECONDS (9.7-12.2) H 10/12/17 05:16 INR 1.1 10/12/17 05:16 APTT 29 SECONDS (21-34) 10/12/17 05:16 D-Dimer, Quantitative 272 ng/mlDDU (0-243) H 10/12/17 10:47 Sodium 145 mmol/L (132-148) 10/12/17 05:16 Potassium 4.0 mmol/L (3.6-5.2) 10/12/17 05:16 Chloride 104 mmol/L (98-107) 10/12/17 05:16 Carbon Dioxide 20 mmol/L (22-30) L 10/12/17 05:16 Anion Gap 25 (10-20) H 10/12/17 05:16 BUN 14 mg/dL (9-20) 10/12/17 05:16 Creatinine 1.2 mg/dL (0.8-1.5) 10/12/17 05:16 Est GFR ( Amer) > 60 10/12/17 05:16 Est GFR (Non-Af Amer) 60 10/12/17 05:16 POC Glucose (mg/dL) 116 mg/dL (65-110) H 10/12/17 07:54 Random Glucose 141 mg/dL (75-110) H 10/12/17 05:16 Hemoglobin A1c 5.7 % (4.2-6.5) 10/12/17 08:11 Calcium 9.2 mg/dl (8.6-10.4) 10/12/17 05:16 Magnesium 2.2 mg/dL (1.6-2.3) 10/12/17 05:16 Total Bilirubin 0.8 mg/dL (0.2-1.3) 10/12/17 05:16 AST 25 U/L (17-59) 10/12/17 05:16 ALT 6 U/L (21-72) L 10/12/17 05:16 Alkaline Phosphatase 138 U/L (38-126) H 10/12/17 05:16 Total Creatine Kinase 186 U/L (55-170) H 10/12/17 14:55 CK-MB (Mass) 1.91 ng/mL (0.0-3.38) 10/12/17 14:55 Troponin I < 0.0120 ng/mL (0.00-0.120) 10/12/17 14:55 NT-Pro-B Natriuret Pep 192 pg/mL (0-900) 10/12/17 10:47 Total Protein 7.4 g/dL (6.3-8.3) 10/12/17 05:16 Albumin 3.8 g/dL (3.5-5.0) 10/12/17 05:16 Globulin 3.5 gm/dL (2.2-3.9) 10/12/17 05:16 Albumin/Globulin Ratio 1.1 (1.0-2.1) 10/12/17 05:16 Triglycerides 183 mg/dL (0-149) H 10/12/17 10:47 Cholesterol 190 mg/dL (0-199) 10/12/17 10:47 LDL Cholesterol Direct 115 mg/dL (0-129) 10/12/17 10:47 HDL Cholesterol 29 mg/dL (30-70) L 10/12/17 10:47 TSH 3rd Generation 0.62 mIU/L (0.46-4.68) 10/12/17 10:47 Urine Color Yellow (YELLOW) 10/12/17 05:42 Urine Clarity Clear (Clear) 10/12/17 05:42 Urine pH 5.0 (5.0-8.0) 10/12/17 05:42 Ur Specific [place] 1.018 (1.003-1.030) 10/12/17 05:42 Urine Protein 2+ mg/dL (NEGATIVE) H 10/12/17 05:42 Urine Glucose (UA) Normal mg/dL (Normal) 10/12/17 05:42 Urine Ketones Negative mg/dL (NEGATIVE) 10/12/17 05:42 Urine Blood 1+ (NEGATIVE) H 10/12/17 05:42 Urine Nitrate Negative (NEGATIVE) 10/12/17 05:42 Urine Bilirubin Negative (NEGATIVE) 10/12/17 05:42 Urine Urobilinogen Normal mg/dL (0.2-1.0) 10/12/17 05:42 Ur Leukocyte Esterase Neg Michele/uL (Negative) 10/12/17 05:42 Urine WBC (Auto) 8 /hpf (0-5) H 10/12/17 05:42 Urine RBC (Auto) 8 /hpf (0-3) H 10/12/17 05:42 Ur Squamous Epith Cells < 1 /hpf (0-5) 10/12/17 05:42 Urine Bacteria Few (<OCC) H 10/12/17 05:42 Granular Casts (Auto) 8 /lpf (0-1) 10/12/17 05:42 Urine Sperm (Auto) Few /hpf (NONE) H 10/12/17 05:42 Urine Opiates Screen Negative (NEGATIVE) 10/12/17 08:35 Urine Methadone Screen Negative (NEGATIVE) 10/12/17 08:35 Ur Barbiturates Screen Negative (NEGATIVE) 10/12/17 08:35 Ur Phencyclidine Scrn Negative (NEGATIVE) 10/12/17 08:35 Ur Amphetamines Screen Negative (NEGATIVE) 10/12/17 08:35 U Benzodiazepines Scrn Negative (NEGATIVE) 10/12/17 08:35 U Oth Cocaine Metabols Negative (NEGATIVE) 10/12/17 08:35 U Cannabinoids Screen Negative (NEGATIVE) 10/12/17 08:35 Alcohol, Quantitative < 10 mg/dl (0-10) 10/12/17 10:47 Attending/Attestation - Attestation I have personally seen and examined this patient.: Yes I have fully participated in the care of the patient.: Yes I have reviewed all pertinent clinical information, including history, physical exam and plan: Yes Notes (Text): Patient left hospitalization against medical advice. Residents discussed risks of leaving the hospital prematurely and as noted in the nursing note. Workup as listed as below including pending workup. Discharge Diagnoses: (1) Left against Medical Advice Status: Acute (2) New onset seizure Status: Acute Comment: Patient admitted to regular floor. Transferred to telemetry in light of new onset seizure. Neurology (Dr. Nguyen) on case-->help appreciated. In light of second seizure, patient starting on Keppra 1gm IV X1, Keppra 500mg IV Q12H. CT head (10/12/17): no definite acute intracranial abnormality. Brain MRI w and w/o (10/12/17): age-related age-appropriate neuro degenerative changes are identified without definite acute intracranial findings. No abnormal intracranial enhancement. Incidental limited left mastoid effusions. EEG pending. Hba1c: 5.7. NATALIE and EKG, Q6H; troponin negative. probnp: 192. Echocardiogram completed. UDS: negative (3) Smoking Status: Chronic Comment: Nicotine patch provided. Duonebs PRN shortness of breathe (4) Hematuria Status: Acute Comment: UA: +pyuria, +hematuria, bacteria. Start Rocephin 1 gram Iv q daily ( to cover for urinary tract infection). Renal and Bladder US ordered r/o mass, in light of painless hematuria and smoking history (5) Pyuria Status: Acute Comment: Start Rocephin 1 gram Iv q daily (to cover for urinary tract infection) . Renal and Bladder US ordered r/o mass, in light of painless hematuria and smoking history (6) Impaired glucose tolerance Status: Acute Comment: a1c: 5.7. Will need lifestyle modifications to reduce risk of becoming overt diabetes (7) High triglycerides Status: Chronic Comment: T (high), cholestrol: 190, LDL: 115, HDL: 29 (low) (8) Elevated d-dimer Status: Acute Comment: venous dopplers r/o DVT. CT angio r/o PE (9) Prophylactic measure Status: Acute Comment: Heparin 5000 units subq 8H
[2017-10-14] MEDS ORDERED: Pneumococcal 23-Valent Vaccine IM ONE (10:00)
== END 2017-10-12 22:04 | disposition left against medical advice (07) | DRG 101 ==
LOC: C.ER 04:17 → C.3T 06:08 → C.5S 10:42
PROVIDERS: ADMIT Family Medicine; ATTEND Hospitalist
DX: R56.9 Unspecified convulsions (principal); N39.0 Urinary tract infection, site not specified; R31.9 Hematuria, unspecified; I10 Essential (primary) hypertension; R73.02 Impaired glucose tolerance (oral); E78.1 Pure hyperglyceridemia; R79.1 Abnormal coagulation profile; J45.909 Unspecified asthma, uncomplicated; F17.210 Nicotine dependence, cigarettes, uncomplicated